=== PATIENT | female | born 1985 | race Hispanic/Latino ===

== ENCOUNTER 2021-01-02 07:48 | Outpatient (CLI) | payer OTHER, SELFPAY ==
[2021-01-02 18:34] LABS: SARS-CoV-2 PCR by NAA Not Detected (NotDetected)
== END 2021-01-02 07:49 | disposition home or self-care (01) ==
LOC: CSHLAB 07:48
PROVIDERS: ATTEND Family Medicine
DX: Z20.822 Contact with and (suspected) exposure to COVID-19 (principal)
CPT/HCPCS: 87635; U0003; U0005

== ENCOUNTER 2021-01-02 15:27 | Inpatient (IN) | payer MEDICAID, OTHER, SELFPAY ==
[2021-01-02] MEDS ORDERED: hydrALAZINE 20 MG/ML VIAL SLOW IVP PRN (16:25)
[2021-01-02] MEDS ORDERED: Acetaminophen 500 MG TAB PO PRN (16:25)
[2021-01-02] MEDS ORDERED: Lidocaine 1% (PF) 30 ML VIAL SC PRN (16:25)
[2021-01-02] MEDS ORDERED: Promethazine HCl 25 MG/ML VIAL IM PRN (16:25)
[2021-01-02] MEDS ORDERED: Ondansetron PF 4 MG/2 ML Vial IVP PRN (16:25)
[2021-01-02] MEDS ORDERED: Penicillin G Potassium 5 MILL.UNITS in Sodium Chloride 0.9% 100 ML IVPB SCH (16:30)
[2021-01-02] MEDS ORDERED: NS w/ Oxytocin 30 units 500 ML IVPB PRN (16:48)
[2021-01-02] MEDS ORDERED: Penicillin G Potassium 5 MILL.UNITS VIAL ONE (17:41)
[2021-01-02 17:48] LABS: Hemoglobin 11.4 g/dL (12.0-15.5); Mean Corpuscular HGB CONC 32.6 g/dL (32.0-36.0); Mean Corpuscular Hemoglobin 28.1 pg (27.0-33.0); Mean Corpuscular Volume 86.4 fl (81.6-98.3); Mean Platelet Volume 10.8 fl (7.4-10.4); Platelet Count 358 10x3/uL (150-450); RBC Distribution Width 15.9 % (11.5-14.5); Red Blood Cell (RBC) Count 4.05 10x6/uL (3.90-5.03)
[2021-01-02] MEDS: Lactated Ringer's 1,000 ML IV SCH (18:03)
[2021-01-02 18:20] LABS: Hep B Surf Ag Non-Reactive S/CO (NonReactive)
[2021-01-02 18:21] LABS: Syphilis Antibody Nonreactive (Nonreactive); Syphilis Antibody Index 0.04 S/CO (<1.00 Non-Reactive)
[2021-01-02 18:29] LABS: HBSAg Index 0.14 S/CO (0-0.99)
[2021-01-02] MEDS ORDERED: Fentanyl 4 mcg/Bup 0.1% Cadd 100 ML ONE (19:25)
[2021-01-02 20:12] VITALS: BMI 26.5
[2021-01-02] MEDS: Penicillin G 2.5 MILL.units 2.5 MILL.UNITS in Premix Bag 1 BAG IVPB SCH (21:55)
[2021-01-03] MEDS: Lactated Ringer's 1,000 ML IV SCH ×2 (01:03→17:30)
[2021-01-03] MEDS: Penicillin G 2.5 MILL.units 2.5 MILL.UNITS in Premix Bag 1 BAG IVPB SCH ×5 (02:03→19:09)
[2021-01-03] MEDS ORDERED: Fentanyl 4 mcg/Bup 0.1% Cadd 100 ML ONE ×2 (05:51→15:09)
[2021-01-03] MEDS ORDERED: NS w/ Oxytocin 30 units 500 ML ONE (09:19)
[2021-01-03] MEDS ORDERED: NS w/ Oxytocin 30 units 500 ML IVPB SCH (09:30)
[2021-01-03] MEDS ORDERED: Meperidine HCl/PF 25 MG/ML VIAL SLOW IVP PRN (16:50)
[2021-01-03] MEDS ORDERED: diphenhydrAMINE 50 MG/ML VIAL IVP PRN (16:50)
[2021-01-03] MEDS ORDERED: ePHEDrine 50 MG/ML VIAL SLOW IVP PRN (16:50)
[2021-01-03] MEDS ORDERED: Naloxone HCl 0.4 mg/ml Vial IVP PRN ×2 (16:50)
[2021-01-03] MEDS ORDERED: Ondansetron PF 4 MG/2 ML Vial IVP PRN (16:50)
[2021-01-03] MEDS ORDERED: Promethazine HCl 25 MG/ML VIAL IM PRN (16:50)
[2021-01-03] MEDS ORDERED: Acetaminophen 325 MG TAB PO PRN (16:50)
[2021-01-03] MEDS ORDERED: L&D-Morphine 4 MG/ML VIAL SLOW IVP PRN (16:50)
[2021-01-03] MEDS ORDERED: Lactated Ringer's 500 ML IV PRN (16:50)
[2021-01-03] MEDS ORDERED: HYDROmorphone 2 MG/ML VIAL SLOW IVP PRN (16:50)
[2021-01-03] MEDS ORDERED: Ondansetron HCl/PF 4 MG/2 ML Vial IVP PRN (16:50)
[2021-01-03] MEDS ORDERED: Communication Order-Pharmacy FS SCH (17:00)
[2021-01-03] MEDS ORDERED: Ketorolac Tromethamine 30 MG/ML VIAL IVP SCH (17:00)
[2021-01-03] MEDS ORDERED: Fentanyl 4 mcg/Bupivacaine 0.1% Cassette 100 ML EPIDURAL SCH (17:00)
[2021-01-03] MEDS ORDERED: Misoprostol 100 MCG TAB ONE (20:42)
[2021-01-03 21:14] LABS: pH (Cord, venous) 7.376 (7.250-7.350)
[2021-01-03] MEDS: Ampicillin 2 GM VIAL ONE (22:10)
[2021-01-04] MEDS ORDERED: Benzocaine-Menthol 82.5 ML CAN TOP PRN (00:03)
[2021-01-04] MEDS ORDERED: Methylergonovine 0.2 MG/ML VIAL IM PRN (00:03)
[2021-01-04] MEDS ORDERED: Lanolin Ointment 7 GM TUBE TOP PRN (00:03)
[2021-01-04] MEDS ORDERED: NS / Oxytocin 40 units/1000ml 1,000 ML IV SCH (00:03)
[2021-01-04] MEDS ORDERED: Bisacodyl 10 MG SUPP PR PRN (00:03)
[2021-01-04] MEDS ORDERED: Milk Of Magnesia 30 ML UDCUP PO PRN (00:03)
[2021-01-04] MEDS ORDERED: Preparation H Ointment 28 GM TUBE PR PRN (00:03)
[2021-01-04] MEDS ORDERED: Methylergonovine 0.2 MG TAB PO PRN (00:03)
[2021-01-04] MEDS ORDERED: diphenhydrAMINE 25 MG CAP PO PRN (00:03)
[2021-01-04] MEDS ORDERED: Misoprostol 200 MCG TAB VAG PRN (00:03)
[2021-01-04] MEDS: AMPicillin 2 GM in Sodium Chloride 0.9% 100 ML IVPB SCH ×3 (01:19→11:44)
[2021-01-04] MEDS: Ibuprofen 800 MG TAB PO SCH ×3 (01:21→17:05)
[2021-01-04] MEDS ORDERED: Ampicillin 2 GM VIAL ONE (03:55)
[2021-01-04] MEDS ORDERED: Sodium Chloride 0.9% 100 ML ONE ×2 (04:08→22:24)
[2021-01-04] MEDS: Ampicillin 2 GM VIAL ONE (04:58)
[2021-01-04] MEDS ORDERED: Measles/Mumps/Rubella 10 MCG/0.5 ML VIAL SC ONE (09:00)
[2021-01-04] MEDS: Ferrous Sulfate 325 MG TAB PO SCH ×2 (09:43→16:52)
[2021-01-04] MEDS: Docusate Calcium (SURFAK) 240 MG CAP PO SCH (09:43)
[2021-01-04] MEDS: Prenatal Vitamin 1 TAB PO SCH (09:43)
[2021-01-04] MEDS: Ampicillin 2 GM in Sodium Chloride 0.9% 100 ML IVPB SCH ×3 (10:24→22:38)
[2021-01-04] MEDS ORDERED: Acetaminophen 325 MG TAB PO PRN (12:41)
[2021-01-04] MEDS ORDERED: Bupivacaine 0.25% HCL 30 ML VIAL ONE (19:23)
[2021-01-05] MEDS: Ibuprofen 800 MG TAB PO SCH ×3 (01:52→17:29)
[2021-01-05] MEDS: Docusate Calcium (SURFAK) 240 MG CAP PO SCH ×2 (01:52→09:01)
[2021-01-05] MEDS ORDERED: Witch Hazel-Glycerin 1 EACH JAR TOP PRN (02:12)
[2021-01-05] MEDS: Ampicillin 2 GM in Sodium Chloride 0.9% 100 ML IVPB SCH (04:34)
[2021-01-05 05:41] LABS: Platelet Count 285 10x3/uL (150-450)
[2021-01-05] MEDS: Ferrous Sulfate 325 MG TAB PO SCH ×2 (07:39→14:23)
[2021-01-05] MEDS: Prenatal Vitamin 1 TAB PO SCH (09:01)
[2021-01-05] MEDS: Penicillin G 2.5 MILL.units 2.5 MILL.UNITS in Premix Bag 1 BAG IVPB SCH (19:12)
[2021-01-05] MEDS: Lactated Ringer's 1,000 ML IV SCH (19:12)
[2021-01-05 20:44] VITALS: BP 111/66; TEMP 99.1
== END 2021-01-05 22:10 | disposition home or self-care (01) | DRG 768 ==
LOC: CSHLD 15:27 → CSHPP 01-04 00:17
PROVIDERS: ADMIT Student in an Organized Health Care Education/Training Program; ATTEND Student in an Organized Health Care Education/Training Program
PROC: 4A0HXCZ Measurement of Products of Conception, Cardiac Rate, External Approach (ICD-10-PCS; 2021-01-02)
PROC: 10E0XZZ Delivery of Products of Conception, External Approach (ICD-10-PCS; principal; 2021-01-03)
PROC: 0UQC7ZZ Repair Cervix, Via Natural or Artificial Opening (ICD-10-PCS; 2021-01-03)
DX: O36.5930 Maternal care for other known or suspected poor fetal growth, third trimester, not applicable or unspecified (principal); Z37.0 Single live birth; O41.1030 Infection of amniotic sac and membranes, unspecified, third trimester, not applicable or unspecified; O98.52 Other viral diseases complicating childbirth; O75.2 Pyrexia during labor, not elsewhere classified; O71.3 Obstetric laceration of cervix; Z3A.38 38 weeks gestation of pregnancy; O24.425 Gestational diabetes mellitus in childbirth, controlled by oral hypoglycemic drugs; O99.02 Anemia complicating childbirth; D64.9 Anemia, unspecified; O99.824 Streptococcus B carrier state complicating childbirth; R82.71 Bacteriuria; O76 Abnormality in fetal heart rate and rhythm complicating labor and delivery; D50.9 Iron deficiency anemia, unspecified; R87.610 Atypical squamous cells of undetermined significance on cytologic smear of cervix (ASC-US)
CPT/HCPCS: 36415; 36416; 51702; 82805; 85014; 85018; 85027; 85049; 86780; 86850; 86900; 86901; 87340; 87635; 88307; 90707; J0290; J0690; J1580; J2540; J2590; J3490; S0020; U0003; U0005

== ENCOUNTER 2022-04-01 12:49 | Day surgery (SDC) | payer SELFPAY ==
[2022-04-01 13:21] VITALS: BMI 25.4
[2022-04-01] MEDS ORDERED: hydrALAZINE 20 MG/ML VIAL SLOW IVP PRN (14:06)
== END 2022-04-01 15:30 | disposition home or self-care (01) ==
LOC: CSHLD/OP 12:49
PROVIDERS: ATTEND Emergency Medicine
DX: O36.8330 Maternal care for abnormalities of the fetal heart rate or rhythm, third trimester, not applicable or unspecified (principal); O24.415 Gestational diabetes mellitus in pregnancy, controlled by oral hypoglycemic drugs; O99.613 Diseases of the digestive system complicating pregnancy, third trimester; K21.9 Gastro-esophageal reflux disease without esophagitis; O09.523 Supervision of elderly multigravida, third trimester; Z3A.35 35 weeks gestation of pregnancy
CPT/HCPCS: 99282

== ENCOUNTER 2022-04-18 21:15 | Day surgery (SDC) | payer OTHER, SELFPAY ==
[2022-04-18 21:45] VITALS: BMI 30.2
[2022-04-18] MEDS ORDERED: hydrALAZINE 20 MG/ML VIAL SLOW IVP PRN (21:58)
[2022-04-18] MEDS ORDERED: Acetaminophen 500 MG TAB PO SCH (22:15)
[2022-04-18 23:04] LABS: Bilirubin Neg (Negative); Blood, Urine Negative (Negative); Clarity Clear (Clear); Glucose, Urine (Dipstick) Normal (Negative); Ketone, Urine Negative (Negative); Leukocyte Negative (Negative); Nitrite Negative (Negative); Protein, Urine (Dipstick) Negative (Neg-Trace); Specific Gravity, Urine 1.015 (1.002-1.036); Urobilinogen Normal mg/dL (Less than 2); pH, Urine 6.5 (5.0-9.0)
[2022-04-18 23:10] LABS: Urine Culture Reflex No No
[2022-04-18 23:37] LABS: Bacteria/HPF Rare-Few HPF (None Seen); RBC/HPF 0-3 HPF (0-3); Squamous Epithelial 0-3 HPF (0-3)
== END 2022-04-19 00:30 | disposition home or self-care (01) ==
LOC: CSHLD/OP 21:15
PROVIDERS: ATTEND Obstetrics & Gynecology
DX: O99.891 Other specified diseases and conditions complicating pregnancy (principal); R51.9 Headache, unspecified; R10.13 Epigastric pain; R10.33 Periumbilical pain; O09.523 Supervision of elderly multigravida, third trimester; O24.415 Gestational diabetes mellitus in pregnancy, controlled by oral hypoglycemic drugs; Z3A.38 38 weeks gestation of pregnancy
CPT/HCPCS: 51701; 81001; 87086; 99283

== ENCOUNTER 2022-04-21 09:30 | Inpatient (IN) | payer MEDICAID, OTHER ==
[2022-04-21] MEDS ORDERED: Promethazine HCl 25 MG/ML VIAL IM PRN ×3 (10:09→11:04)
[2022-04-21] MEDS ORDERED: Ibuprofen 800 MG TAB PO PRN (10:09)
[2022-04-21] MEDS ORDERED: Misoprostol 200 MCG TAB PR PRN (10:09)
[2022-04-21] MEDS ORDERED: Lidocaine 1% (PF) 30 ML VIAL SC PRN ×2 (10:09→10:13)
[2022-04-21] MEDS ORDERED: Methylergonovine 0.2 MG/ML VIAL IM PRN (10:09)
[2022-04-21] MEDS ORDERED: hydrALAZINE 20 MG/ML VIAL SLOW IVP PRN ×2 (10:09→10:13)
[2022-04-21] MEDS ORDERED: Ondansetron PF 4 MG/2 ML Vial IVP PRN ×3 (10:09→11:04)
[2022-04-21] MEDS ORDERED: Carboprost 250 MCG/ML AMP IM PRN (10:09)
[2022-04-21] MEDS ORDERED: Lactated Ringer's 1,000 ML IV SCH (10:15)
[2022-04-21] MEDS ORDERED: Penicillin G Potassium 5 MILL.UNITS in Sodium Chloride 0.9% 100 ML IVPB SCH (10:15)
[2022-04-21] MEDS ORDERED: NS w/ Oxytocin 30 units 500 ML IV SCH ×2 (10:15)
[2022-04-21 10:20] VITALS: BMI 25.2
[2022-04-21] MEDS ORDERED: Penicillin G Potassium 5 MILL.UNITS VIAL ONE (10:24)
[2022-04-21] MEDS ORDERED: Fentanyl 2 mcg/Bup 0.1% Cadd 100 ML ONE (10:26)
[2022-04-21 10:31] LABS: Hemoglobin 11.1 g/dL (12.0-15.5); Mean Corpuscular HGB CONC 32.3 g/dL (32.0-36.0); Mean Corpuscular Hemoglobin 26.4 pg (27.0-33.0); Mean Corpuscular Volume 81.7 fl (81.6-98.3); Mean Platelet Volume 9.8 fl (7.4-10.4); Platelet Count 447 10x3/uL (150-450); RBC Distribution Width 14.8 % (11.5-14.5); Red Blood Cell (RBC) Count 4.21 10x6/uL (3.90-5.03); White Blood Cell (WBC) Count 8.3 10x3/uL (3.5-10.5)
[2022-04-21 11:04] LABS: Syphilis Antibody Nonreactive (Nonreactive); Syphilis Antibody Index 0.05 S/CO (<1.00 Non-Reactive)
[2022-04-21] MEDS ORDERED: Moisturizing Cream (Eucerin) 113 GM JAR TOP PRN (11:04)
[2022-04-21] MEDS ORDERED: Naloxone HCl 0.4 mg/ml Vial IVP PRN ×2 (11:04)
[2022-04-21] MEDS ORDERED: ePHEDrine Sulfate 50 MG/10 ML VIAL SLOW IVP PRN (11:04)
[2022-04-21] MEDS ORDERED: Acetaminophen 325 MG TAB PO PRN (11:04)
[2022-04-21] MEDS ORDERED: Lactated Ringer's 500 ML IV PRN (11:04)
[2022-04-21] MEDS ORDERED: diphenhydrAMINE 50 MG/ML VIAL IVP PRN (11:04)
[2022-04-21 11:05] LABS: Hep B Surf Ag Non-Reactive S/CO (NonReactive)
[2022-04-21] MEDS ORDERED: Communication Order-Pharmacy FS SCH (11:15)
[2022-04-21] MEDS ORDERED: Fentanyl 2 mcg/Bupivacaine 0.1% Cassette 100 ML EPIDURAL SCH (11:15)
[2022-04-21] MEDS: Penicillin G 2.5 MILL.units 2.5 MILL.UNITS in Premix Bag 1 BAG IVPB SCH (14:02)
[2022-04-21] MEDS ORDERED: Measles/Mumps/Rubella 10 MCG/0.5 ML VIAL SC ONE (16:24)
[2022-04-21] MEDS ORDERED: Milk Of Magnesia 30 ML UDCUP PO PRN (16:24)
[2022-04-21] MEDS ORDERED: Benzocaine-Menthol 82.5 ML CAN TOP PRN (16:24)
[2022-04-21] MEDS ORDERED: Boostrix 0.5 ML (Tdap) VIAL IM ONE (16:24)
[2022-04-21] MEDS: Bisacodyl 10 MG SUPP PR SCH (17:00)
[2022-04-21] MEDS: Ferrous Sulfate 325 MG TAB PO SCH (17:00)
[2022-04-21 18:15] LABS: SARS-CoV-2 NAA Rapid Test Not Detected (NotDetected)
[2022-04-21] MEDS ORDERED: HYDROcodone/Acetaminophen 5/325 mg Tablet PO SCH (19:30)
[2022-04-21] MEDS: Ibuprofen 800 MG TAB PO SCH (21:32)
[2022-04-21] MEDS: Docusate 100 MG CAP PO SCH (21:32)
[2022-04-21] MEDS ORDERED: HYDROcodone/Acetaminophen 10/325 mg Tablet PO PRN (22:47)
[2022-04-21] MEDS ORDERED: Acetaminophen 325 MG TAB PO SCH (23:00)
[2022-04-21] MEDS ORDERED: traMADol HCl 50 MG TAB PO SCH (23:15)
[2022-04-21] MEDS ORDERED: HYDROcodone/Acetaminophen 5/325 mg Tablet PO PRN (23:16)
[2022-04-21] MEDS ORDERED: Cyclobenzaprine 10 MG TAB PO SCH (23:30)
[2022-04-22] MEDS ORDERED: HYDROcodone/Acetaminophen 5/325 mg Tablet PO SCH (01:00)
[2022-04-22] MEDS: Ibuprofen 800 MG TAB PO SCH ×3 (05:53→21:37)
[2022-04-22] MEDS: Preparation H Ointment 28 GM TUBE PR SCH ×4 (06:41→21:39)
[2022-04-22] MEDS: Bisacodyl 10 MG SUPP PR SCH ×3 (06:42→16:29)
[2022-04-22] MEDS: Penicillin G 2.5 MILL.units 2.5 MILL.UNITS in Premix Bag 1 BAG IVPB SCH (07:53)
[2022-04-22] MEDS: Ferrous Sulfate 325 MG TAB PO SCH (07:53)
[2022-04-22] MEDS: Docusate 100 MG CAP PO SCH ×2 (08:21→21:37)
[2022-04-22] MEDS: Prenatal Vitamin 1 TAB PO SCH (08:21)
[2022-04-22] MEDS: Acetaminophen 325 MG TAB PO SCH ×4 (11:48→20:26)
[2022-04-22 20:31] VITALS: TEMP 98.1
[2022-04-23] MEDS: Bisacodyl 10 MG SUPP PR SCH ×2 (02:11→08:38)
[2022-04-23] MEDS: Acetaminophen 325 MG TAB PO SCH ×3 (02:11→08:57)
[2022-04-23] MEDS: Ibuprofen 800 MG TAB PO SCH ×2 (05:48→13:51)
[2022-04-23 08:08] VITALS: BP 124/73
[2022-04-23] MEDS: Prenatal Vitamin 1 TAB PO SCH (08:57)
[2022-04-23] MEDS: Docusate 100 MG CAP PO SCH (08:57)
[2022-04-23] MEDS: Preparation H Ointment 28 GM TUBE PR SCH (08:58)
== END 2022-04-23 14:35 | disposition home or self-care (01) | DRG 807 ==
LOC: CSHLD/OP 09:30 → CSHLD 10:22 → CSHPP 17:40
PROVIDERS: ADMIT Family Medicine; ATTEND Family Medicine
PROC: 10E0XZZ Delivery of Products of Conception, External Approach (ICD-10-PCS; principal; 2022-04-21)
DX: O24.425 Gestational diabetes mellitus in childbirth, controlled by oral hypoglycemic drugs (principal); Z37.0 Single live birth; Z3A.38 38 weeks gestation of pregnancy; Z20.822 Contact with and (suspected) exposure to COVID-19; Z79.84 Long term (current) use of oral hypoglycemic drugs; O99.824 Streptococcus B carrier state complicating childbirth; Z90.49 Acquired absence of other specified parts of digestive tract; Z79.899 Other long term (current) drug therapy; M54.9 Dorsalgia, unspecified; R51.9 Headache, unspecified; O99.893 Other specified diseases and conditions complicating puerperium
CPT/HCPCS: 36415; 36416; 51702; 85027; 86780; 86850; 86900; 86901; 87340; 90707; 99285; J2540; J2590; J3490; U0002